=== PATIENT | female | born 1990 | race Caucasian/White ===

== ENCOUNTER 2018-10-04 20:57 | Emergency (ER) | payer OTHER ==
[2018-10-04] MEDS ORDERED: NORMAL SALINE 1000 ML 1,000 ML IV ONE (21:09)
--- NOTE | 2018-10-04 21:10 | ER Document Report ---
ED General - General Chief Complaint: Nausea/Vomiting Stated Complaint: ABDOMINAL PAIN/VOMITTING Time Seen by Provider: 10/04/18 21:09 Notes: Patient is a 28-year-old female that presents to the emergency department for chief complaint of right upper quadrant abdominal pain, nausea and vomiting. Patient reports that this pain started earlier today, but seemed to get progressively worse over the course of the day, she said 4 episodes of ass ociated vomiting, but no diarrhea. She called EMS because the pain reached a 10 out of 10, described as a constant aching and sharp sensation, with radiation towards the back. She was given Zofran, by EMS and that has helped with her nausea. She has had some chills, and subjective fever associated with this, no sick contacts that she is aware of. She has not had pain like this in the past. She states she has had ovarian cyst, but the pain was much different, she denies having any lower abdominal pain. Past Medical History: Ovarian cysts Past Surgical History: Laparoscopy Social History: Denies tobacco, alcohol or drug use. Family History: Reviewed and noncontributory for presenting illness Allergies: Reviewed, see documented allergy list. REVIEW OF SYSTEMS: Other than noted above, the 12 point review of systems was reviewed with the patient and were negative, all pertinent findings are included in the HPI. PHYSICAL EXAMINATION: Vital signs reviewed, nursing noted reviewed. GENERAL: Patient appears uncomfortable on exam, no acute respiratory distress. HEAD: Atraumatic, normocephalic. EYES: Eyes appear normal, extraocular movements intact, sclera anicteric, conjunctiva are normal. ENT: nares patent, oropharynx clear without exudates. Moist mucous membranes. NECK: Normal range of motion, supple without lymphadenopathy LUNGS: Breath sounds clear to auscultation bilaterally and equal. No wheezes rales or rhonchi. HEART: Regular rate and rhythm without murmurs ABDOMEN: Soft, right upper quadrant tenderness to palpation, positive Tam sign, normoactive bowel sounds. No rebound, guarding, or rigidity. No masses appreciated. EXTREMITIES: Nontender, good range of motion, no pitting or edema. NEUROLOGICAL: No focal neurological deficits. Moves all extremities spontaneously Motor and sensory grossly intact on exam. PSYCH: Normal mood, normal affect. SKIN: Warm, Dry, normal turgor, no rashes or lesions noted on exposed skin Past Medical History - Social History Smoking Status: Never Smoker Family History: Reviewed & Not Pertinent Physical Exam - Vital signs Vitals: Temp Pulse Resp BP Pulse Ox 97.7 F 64 18 117/78 100 10/04/18 21:16 10/04/18 21:16 10/04/18 21:16 10/04/18 21:16 10/04/18 21:16 Course - Re-evaluation Re-evalutation: Patient seen and examined vital signs reviewed. Laboratory data and imaging were ordered as appropriate for the patient's presenting symptoms and complaint, with consideration of any critical or life threatening conditions that may be associated with their obtained history and exam as noted above. Patient was treated with IV fluids, morphine, and Zofran Results were reviewed when available and demonstrated UA that was mildly positive for possible UTI, but not convincing, her blood work was unremarkable, ultrasound of the gallbladder was negative, and CT of the abdomen and pelvis was negative as well The patient was re-evaluated and was improved, discussed with her we did not have a clear etiology of her abdominal pain, possible biliary colic versus renal colic, and advised her to follow-up with her primary care, she is given [place] and Zofran dispense pack, advised to return if her symptoms worsen, she is given 3 days of Keflex to take for possible UTI. Evaluation was most consistent with abdominal pain, UTI Results were discussed with the patient at this point, after careful consideration I feel that that patient can be discharged from the emergency department, the patient was educated treatments and reasons to return to the emergency department based on their presumed diagnosis as noted above, they were advised to followup with a primary care physician in 2-3 days. Patient was agreeable to plan of care. *Note is created using voice recognition software and may contain spelling, syntax or grammatical errors. Laboratory 10/04/18 10/04/18 10/04/18 21:35 21:40 21:40 WBC 10.3 RBC 4.97 Hgb 15.3 Hct 44.3 MCV 89 MCH 30.7 MCHC 34.5 RDW 13.4 Plt Count 228 Seg Neutrophils % 78.7 H Lymphocytes % 13.8 Monocytes % 6.6 Eosinophils % 0.3 Basophils % 0.6 Absolute Neutrophils 8.1 Absolute Lymphocytes 1.4 Absolute Monocytes 0.7 Absolute Eosinophils 0.0 Absolute Basophils 0.1 Sodium 137.1 Potassium 3.9 Chloride 108 H Carbon Dioxide 20 L Anion Gap 9 BUN 9 Creatinine 0.55 Est GFR ( Amer) > 60 Est GFR (Non-Af Amer) > 60 Glucose 108 POC Glucose 116 H Calcium 8.3 L Total Bilirubin 0.7 Direct Bilirubin 0.0 Neonat Total Bilirubin Not Reportable Neonat Direct Bilirubin Not Reportable Neonat Indirect Bili Not Reportable AST 21 ALT 29 Alkaline Phosphatase 40 Total Protein 6.2 L Albumin 3.8 Lipase 62.7 Serum HCG, Qual Urine Color Urine Appearance Urine pH Ur Specific [place] Urine Protein Urine Glucose (UA) Urine Ketones Urine Blood Urine Nitrite Urine Bilirubin Urine Urobilinogen Ur Leukocyte Esterase Urine WBC (Auto) Urine RBC (Auto) Urine Bacteria (Auto) Squamous Epi Cells Auto Urine Mucus (Auto) Urine Ascorbic Acid 10/04/18 10/04/18 21:40 23:01 WBC RBC Hgb Hct MCV MCH MCHC RDW Plt Count Seg Neutrophils % Lymphocytes % Monocytes % Eosinophils % Basophils % Absolute Neutrophils Absolute Lymphocytes Absolute Monocytes Absolute Eosinophils Absolute Basophils Sodium Potassium Chloride Carbon Dioxide Anion Gap BUN Creatinine Est GFR ( Amer) Est GFR (Non-Af Amer) Glucose POC Glucose Calcium Total Bilirubin Direct Bilirubin Neonat Total Bilirubin Neonat Direct Bilirubin Neonat Indirect Bili AST ALT Alkaline Phosphatase Total Protein Albumin Lipase Serum HCG, Qual NEGATIVE Urine Color YELLOW Urine Appearance CLEAR Urine pH 6.0 Ur Specific [place] 1.017 Urine Protein NEGATIVE Urine Glucose (UA) NEGATIVE Urine Ketones TRACE H Urine Blood NEGATIVE Urine Nitrite NEGATIVE Urine Bilirubin NEGATIVE Urine Urobilinogen NEGATIVE Ur Leukocyte Esterase NEGATIVE Urine WBC (Auto) 4 Urine RBC (Auto) 2 Urine Bacteria (Auto) 1+ Squamous Epi Cells Auto 2 Urine Mucus (Auto) MANY Urine Ascorbic Acid NEGATIVE Abdomen Ultrasound 10/04/18 21:15 IMPRESSION: 1. No gallstones or cholecystitis. 2. Multiple right renal echogenic foci may represent punctate stones. Correlate with same day CT scan. Limited or Localized CT 10/04/18 22:42 IMPRESSION: 1. No urinary stones are seen. 2. Normal appendix. - Vital Signs Vital signs: Temp Pulse Resp BP Pulse Ox 97.7 F 64 18 117/78 100 10/04/18 21:16 10/04/18 21:16 10/04/18 21:16 10/04/18 21:16 10/04/18 21:16 - Laboratory Result Diagrams: 10/04/18 21:40 10/04/18 21:40 Laboratory results interpreted by me: 10/04/18 10/04/18 10/04/18 21:35 21:40 21:40 Seg Neutrophils % 78.7 H Chloride 108 H Carbon Dioxide 20 L POC Glucose 116 H Calcium 8.3 L Total Protein 6.2 L Urine Ketones 10/04/18 23:01 Seg Neutrophils % Chloride Carbon Dioxide POC Glucose Calcium Total Protein Urine Ketones TRACE H Discharge - Discharge Clinical Impression: Abdominal pain Qualifiers: Abdominal location: unspecified location Qualified Code(s): R10.9 - Unspecified abdominal pain UTI (urinary tract infection) Qualifiers: Urinary tract infection type: site unspecified Hematuria presence: without hematuria Qualified Code(s): N39.0 - Urinary tract infection, site not specified Condition: Stable Disposition: HOME, SELF-CARE Instructions: Abdominal Pain ([facility]), Urinary Tract Infection ([facility]) Additional Instructions: Please return to the emergency department if you have any worsening, or concern of your symptoms. Please return to the emergency department if you develop chest pain, difficulty breathing, severe abdominal pain, or ongoing vomiting. Please follow-up with your primary care physician in 2-3 days and any other recommended physicians. If prescribed, take all medications as directed. If you have any questions or concerns do not hesitate to return the emergency department for evaluation. Prescriptions: Cephalexin Monohydrate [Keflex 500 mg Capsule] 500 mg PO Q12H 3 Days #6 capsule Referrals: CLARKE CHEN MD [ACTIVE STAFF] - Follow up in 3-5 days
[2018-10-04] MEDS ORDERED: MORPHINE SULFATE 10 MG/ML INJ IV ONE (21:16)
[2018-10-04 22:03] LABS: ABSOLUTE BASOPHILS # (AUTO) 0.1 10^3/uL (0.0-0.2); ABSOLUTE LYMPHOCYTES (AUTO) 1.4 10^3/uL (0.5-4.7); ABSOLUTE MONOCYTES (AUTO) 0.7 10^3/uL (0.1-1.4); ABSOLUTE NEUT (AUTO) 8.1 10^3/uL (1.7-8.2); BASOPHILS % (AUTO) 0.6 % (0-2); EOSINOPHILS % (AUTO) 0.3 % (0-6); HEMATOCRIT 44.3 % (36.0-47.0); HEMOGLOBIN 15.3 g/dL (12.0-15.5); LYMPHOCYTES % (AUTO) 13.8 % (13-45); MEAN CORPUSCULAR HEMOGLOBIN 30.7 pg (27.0-33.4); MEAN CORPUSCULAR HGB CONC 34.5 g/dL (32.0-36.0); MEAN CORPUSCULAR VOLUME 89 fl (80-97); MONOCYTES % (AUTO) 6.6 % (3-13); PLATELET COUNT 228 10^3/uL (150-450); RED BLOOD COUNT 4.97 10^6/uL (3.72-5.28); RED CELL DISTRIBUTION WIDTH 13.4 % (11.5-14.0); SEGMENTED NEUTROPHILS % (AUTO) 78.7 % (42-78); TOTAL CELLS COUNTED % (AUTO) 100 %; WHITE BLOOD COUNT 10.3 10^3/uL (4.0-10.5)
[2018-10-04 22:16] LABS: ALANINE AMINOTRANSFERASE 29 U/L (9-52); ALBUMIN 3.8 g/dL (3.5-5.0); ALKALINE PHOSPHATASE 40 U/L (38-126); ANION GAP 9 (5-19); ASPARTATE AMINO TRANSFERASE 21 U/L (14-36); BILIRUBIN,TOTAL 0.7 mg/dL (0.2-1.3); BLOOD UREA NITROGEN 9 mg/dL (7-20); CALCIUM 8.3 mg/dL (8.4-10.2); CARBON DIOXIDE 20 mmol/L (22-30); CHLORIDE 108 mmol/L (98-107); GLUCOSE 108 mg/dL (75-110); LIPASE 62.7 U/L (23-300); POTASSIUM 3.9 mmol/L (3.6-5.0); SODIUM 137.1 mmol/L (137-145); TOTAL PROTEIN 6.2 g/dL (6.3-8.2)
[2018-10-04] MEDS ORDERED: HYDROMORPHONE HCL INJ/PF 2 MG/ML AMPULE IV ONE (22:33)
--- NOTE | 2018-10-04 22:55 | RADIOLOGY REPORT (SQ) ---
US ABDOMEN LIMITED HISTORY: Right upper quadrant pain. COMPARISON: None. TECHNIQUE: Grayscale and color Doppler imaging of the right upper quadrant was performed. FINDINGS: The liver has normal echotexture without focal lesion identified. The main portal vein has normal hepatopetal flow. No shadowing gallstones are seen. No pericholecystic fluid or gallbladder wall thickening. The common bile duct is normal caliber. The pancreas is not visualized due to overlying bowel gas. No hydronephrosis or shadowing renal stones are identified. The right kidney measures 9.7 cm in length and contains multiple echogenic foci. The visualized portions of the IVC and aorta are patent. IMPRESSION: 1. No gallstones or cholecystitis. 2. Multiple right renal echogenic foci may represent punctate stones. Correlate with same day CT scan.
[2018-10-04 23:16] LABS: APPEARANCE,URINE CLEAR; BILIRUBIN,URINE NEGATIVE (NEGATIVE); COLOR,URINE YELLOW; GLUCOSE, URINE NEGATIVE (NEGATIVE); KETONES,URINE TRACE mg/dL (NEGATIVE); LEUKOCYTE ESTERASE,URINE NEGATIVE (NEGATIVE); NITRITE,URINE NEGATIVE (NEGATIVE); PROTEIN,URINE NEGATIVE (NEGATIVE); URINE SPECIFIC GRAVITY 1.017; UROBILINOGEN,URINE NEGATIVE mg/dL (<2.0)
--- NOTE | 2018-10-04 23:18 | RADIOLOGY REPORT (SQ) ---
CT ABDOMEN WITHOUT IV CONTRAST HISTORY: Right flank pain. Nausea and vomiting. COMPARISON: None. TECHNIQUE: CT scan of the abdomen and pelvis without IV contrast. This exam was performed according to our departmental dose-optimization program, which includes automated exposure control, adjustment of the mA and/or kV according to patient size and/or use of iterative reconstruction technique. FINDINGS: The lung bases are clear. No pleural or pericardial effusions are seen. The liver, gallbladder, spleen, pancreas, adrenal glands, and kidneys are unremarkable. No obstructing urinary stones. There is an IUD in situ. The urinary bladder is collapsed. A small amount of free fluid is present in the pelvic cul-de-sac, likely physiologic. No small bowel obstruction. Appendix is normal. No evidence of diverticulitis. No intraperitoneal free fluid or free air is seen. Aorta is normal caliber. No acute osseous findings are appreciated. No body wall hernia. IMPRESSION: 1. No urinary stones are seen. 2. Normal appendix.
[2018-10-04] MEDS ORDERED: ONDANSETRON ODT 4 MG TAB (6 TAB/ER DISP) PO PRN (23:37)
[2018-10-04] MEDS ORDERED: HYDROCODONE/ACETAMINOPHEN 5-325 MG (6 TAB/ER DISP) PO PRN (23:37)
[2018-10-05 00:21] VITALS: BP 112/58
== END 2018-10-05 03:03 | disposition home or self-care (01) ==
LOC: ER 20:57
DX: N39.0 Urinary tract infection, site not specified (principal); R10.11 Right upper quadrant pain; R11.2 Nausea with vomiting, unspecified; R68.83 Chills (without fever)
CPT/HCPCS: 99284; 96361; 96374; 96375; 36415; 82962; 83690; 84703; 85025; 80053; 81001; 76705; 76380; J2270; J1170; J7030

== ENCOUNTER 2018-12-10 13:28 | Day surgery (SDC) | payer OTHER ==
[~2018-12-10 13:28] MED LIST: CEFAZOLIN 2 GM/D5W RTU 2 GM/50 ML RTUPB IV ONE; CEFAZOLIN 2 GM/D5W RTU 2 GM/50 ML RTUPB IV PRN
[2018-12-10] MEDS ORDERED: FENTANYL CITRATE INJ/PF 100 MCG/2 ML AMPUL ONE ×2 (13:47→15:44)
[2018-12-10] MEDS ORDERED: PROPOFOL INJ 200 MG/20 ML VIAL IV ONE ×2 (13:47→15:45)
[2018-12-10] MEDS ORDERED: MIDAZOLAM 2 MG/2 ML INJ ONE ×2 (13:47→15:44)
[2018-12-10] MEDS ORDERED: MORPHINE SULFATE 10 MG/ML INJ IV PRN (15:24)
[2018-12-10] MEDS ORDERED: ONDANSETRON HCL INJ/PF 4 MG/2 ML SDV IV PRN ×2 (15:24→16:37)
[2018-12-10] MEDS ORDERED: FENTANYL CITRATE INJ/PF 100 MCG/2 ML AMPUL IV PRN ×3 (15:24)
[2018-12-10] MEDS ORDERED: PROMETHAZINE HCL INJ 25 MG/1 ML VIAL IV PRN (15:24)
[2018-12-10] MEDS ORDERED: DIPHENHYDRAMINE HCL 50 MG/ML VIAL IV PRN (15:24)
[2018-12-10] MEDS ORDERED: MEPERIDINE HCL/PF INJ 25 MG/1 ML DISP.SYRIN IV PRN (15:24)
[2018-12-10] MEDS ORDERED: BUPIVACAINE HCL 0.5 % INJ/PF 30 ML SDV ONE (15:45)
--- NOTE | 2018-12-10 16:29 | Discharge Summary ---
Discharge Summary (SDC) - Discharge Final Diagnosis: Right small finger distal phalanx fracture Date of Surgery: 12/10/18 Discharge Date: 12/10/18 Condition: Good Treatment or Instructions: Schedule Follow Up w/ Dr. Archie Hernandez @ [facility] for Surgery to be seen in 10-14 days or as scheduled Stem: Reading: [place]: May remove dressing on postop day #3, keep incision covered and dry. Ice and elevate May begin finger range of motion of the small finger but keep DIP joint immobilized Keep Pin sites clean/dry/intact. Stool softener of choice when on pain medication. USE OF [id number] IBUPROFEN: Ibuprofen (Advil, Nuprin, Medipren, Motrin IB) is a medication for fever and pain control. In addition, it has anti- inflammatory effects which may be beneficial, especially in the treatment of injuries. It's best to take ibuprofen with food. Persons with ulcer disease or allergy to aspirin should notify their physician of this before taking ibuprofen. Ibuprofen can be given every four to six hours, for a total of four doses daily. Age Pain or fever dose Antiinflammatory dose 6-8 yr 200 mg (1 tab) 200 mg (1 tab) 9-11 yr 200 mg (1 tab) 200-400 mg (1-2 tab) 11-14 yr 200-400 mg (1-2 tab) 400 mg (2 tab) 15-adult 400 mg (2 tab) 600 mg (3 tab) ORAL NARCOTIC MEDICATION: You have been given a prescription for pain control. This medication is a narcotic. It's best taken with food, as nausea can result if taken on an empty stomach. Don't operate machinery or drive within six hours of taking this medication. Do not combine this medicine with alcohol, or with any medication which can cause sedation (such as cold tablets or sleeping pills) unless you get permission from the physician. Narcotics tend to cause constipation. If possible, drink plenty of fluids and eat a diet high in fiber and fruits. Please be aware that prescription narcotics also have the potential for abuse. People become addicted to these medications because of the general sense of wellbeing that they induce. This feeling along with a significant reduction in tension, anxiety, and aggression provides a stimulating seductive quality to these drugs. Once your pain is under control, we encourage you to discard your unused narcotics. Prescriptions: Hydrocodone/Acetaminophen [[place] 5-325 mg Tablet] 1 tab PO Q6 PRN #25 tablet PRN Reason: Discharge Diet: As Tolerated Respiratory Treatments at Home: Deep Breathing/Coughing Discharge Activity: No Lifting Over 10 Pounds, No Lifting/Push/Pulling Report the Following to Your Physician Immediately: Fever over 101 Degrees, Unusual Bleeding, Redness, Swelling, Warmth
--- NOTE | 2018-12-10 16:30 | Operative Report ---
Operative Report DATE OF SURGERY: 12/10/18 PREOPERATIVE DIAGNOSIS: Left small finger intra-articular distal phalanx fractu re POSTOPERATIVE DIAGNOSIS: Same OPERATION: Closed reduction percutaneous pinning left small finger distal phalanx fracture SURGEON: VALERIE CARRIZALES ANESTHESIA: LMAC COMPLICATIONS: None ESTIMATED BLOOD LOSS: Minimal PROCEDURE: Indication for above procedure: 28-year-old female who on 11/07/18 got her finger bent backwards since then she is been unable to fully straighten her finger. Attempted conservative measures with bracing without significant improvement and continued displacement of the fracture. She did not follow-up with me at which point we discussed treatment options including observation versus operative intervention after discussing risks and benefits of both decision was made to proceed with operative treatment. Procedure In Detail: Patient was seen and evaluated in the preoperative holding area. The LEFT upper extremity was initialized and marked. Patient received 2g of Ancef IV for bacterial prophylaxis. Patient was taken back to the operative room where transferred to the operative table. Once they were adequately anesthetized a surgical team debriefing was performed ensuring all instrumentation was available, the surgical procedure was discussed with possible concerns reviewed. A digital block was performed utilizing 10 mL of 1% lidocaine without epinephrine. The upper extremity was prepped with chlorhexidine and alcohol and draped in a sterile fashion. A timeout was done identifying correct patient, procedure and extremity everyone in attendance agree with this and verbalized no concerns. digital tourniquet was placed Procedure In Detail: Patient was seen and evaluated in the preoperative holding area. The RIGHT upper extremity was initialized and marked. Patient received 2g of Ancef IV for bacterial prophylaxis. Patient was taken back to the operative room where transferred to the operative table. Once they were adequately anesthetized a surgical team debriefing was performed ensuring all instrumentation was available, the surgical procedure was discussed with possible concerns reviewed. A digital block was performed utilizing 10 mL of 1% lidocaine without epinephrine. The upper extremity was prepped with chlorhexidine and alcohol and draped in a sterile fashion. A timeout was done identifying correct patient, procedure and extremity everyone in attendance agree with this and verbalized no concerns. Digital tourniquet was placed. DIP joint was flexed and a 0.045 dorsal blocking pin was placed maintaining a relatively neutral position of the distal intra-articular fragment. Distal phalanx was extended however continue to demonstrate intra-articular diastases and thus a reduction tenaculum was placed around the fragment which reduced the articular segment and subluxation. A 0.045 transarticular pin was placed across the DIP joint which maintained reduction of the joint and fragment with the dorsal blocking pin. AP and lateral view demonstrated reduction of the fracture within acceptable position without evidence of DIP joint subluxation. K wires were then cut just outside the skin. Digital tourniquet was removed patient good peripheral perfusion. Patient was placed in a soft dressing. Sponge counts, instrument counts, needle counts counts were correct. Patient was then awoken from anesthesia. Transferred from the operating room table to the operating room stretcher. There was no intraoperative complications patient tolerated procedure well stable to PACU. Postoperative plan: Patient will follow-up as scheduled for wound check. Patient will begin PIP joint range of motion immediately. Patient will be set up for occupational therapy to be fitted for a thermoplastic splint for protection. We will obtain x-rays at follow-up.
[2018-12-10] MEDS ORDERED: LIDOCAINE 1% INJ-PF (10 MG/ML) 30 ML SDV ONE (16:37)
[2018-12-10] MEDS ORDERED: HYDROCODONE/ACETAMINOPHEN 5-325 MG TABLET PO PRN (16:37)
--- NOTE | 2018-12-10 17:00 | RADIOLOGY REPORT (SQ) ---
EXAM DESCRIPTION: NO CHG FLUORO; FINGER LEFT COMPLETED DATE/TIME: 12/10/2018 4:49 pm; 12/10/2018 4:52 pm REASON FOR STUDY: PERC PINNING LT 5TH DIGIT S62.637A DISP FX OF DISTAL PHALANX OF LEFT LITTLE FINGE R, IN COMPARISON: None. FLUOROSCOPY TIME: 28 seconds 5 images saved to PACS. TECHNIQUE: Intra-operative images acquired during surgical procedure to evaluate progress. NUMBER OF IMAGES: 5 LIMITATIONS: None. FINDINGS: Intraoperative imaging reveals K-wire placement across the DIP joint of what is reportedly the 5th digit. Side not labeled. Please correlate with operative note. IMPRESSION: IMAGE(S) OBTAINED DURING PROCEDURE. COMMENT: Quality ID [id number]: Final reports for procedures using fluoroscopy that document radiation exp osure indices, or exposure time and number of fluorographic images (if radiation exposure indices are not available) Please consult full operative report of the attending physician for description of the procedure. TECHNICAL DOCUMENTATION: JOB ID: [id number] [employer]- All Rights Reserved Reading location - IP/workstation name: [email or web address]
--- NOTE | 2018-12-10 17:00 | RADIOLOGY REPORT (SQ) ---
EXAM DESCRIPTION: NO CHG FLUORO; FINGER LEFT COMPLETED DATE/TIME: 12/10/2018 4:49 pm; 12/10/2018 4:52 pm REASON FOR STUDY: PERC PINNING LT 5TH DIGIT S62.637A DISP FX OF DISTAL PHALANX OF LEFT LITTLE FINGE R, IN COMPARISON: None. FLUOROSCOPY TIME: 28 seconds 5 images saved to PACS. TECHNIQUE: Intra-operative images acquired during surgical procedure to evaluate progress. NUMBER OF IMAGES: 5 LIMITATIONS: None. FINDINGS: Intraoperative imaging reveals K-wire placement across the DIP joint of what is reportedly the 5th digit. Side not labeled. Please correlate with operative note. IMPRESSION: IMAGE(S) OBTAINED DURING PROCEDURE. COMMENT: Quality ID [id number]: Final reports for procedures using fluoroscopy that document radiation exp osure indices, or exposure time and number of fluorographic images (if radiation exposure indices are not available) Please consult full operative report of the attending physician for description of the procedure. TECHNICAL DOCUMENTATION: JOB ID: [id number] [employer]- All Rights Reserved Reading location - IP/workstation name: [email or web address]
[2018-12-10 19:28] VITALS: BP 123/85
== END 2018-12-10 17:40 | disposition home or self-care (01) ==
LOC: OROUT 13:28
PROVIDERS: ATTEND Orthopaedic Surgery
DX: S62.637A Displaced fracture of distal phalanx of left little finger, initial encounter for closed fracture (principal); X50.1XXA Overexertion from prolonged static or awkward postures, initial encounter
CPT/HCPCS: 81025; 73140; 26756; C1713; J2250; J3010; J3490; J2704; J0690; 01820